=== PATIENT | male | born 1995 | race Caucasian/White ===

== ENCOUNTER 2016-05-27 18:45 | Inpatient (IN) | payer BC ==
--- NOTE | 2016-05-27 18:57 | EDM.PDOC ---
ED HPI GENERAL MEDICAL PROBLEM - General Chief Complaint: Genitourinary Problem Stated Complaint: BLOOD IN URINE Time Seen by Provider: 05/27/16 18:56 Source of Information: Reports: Patient - History of Present Illness INITIAL COMMENTS - FREE TEXT/NARRATIVE: HISTORY AND PHYSICAL: History of present illness: [] Patient presents with a history of muscular dystrophy complains of colored urine and leg cramping no fever nausea vomiting chills sweats As medications or other chronic illness or disease denies herbal supplements Review of systems: As per history of present illness and below otherwise all systems reviewed and negative. Past medical history: As per history of present illness and as reviewed below otherwise noncontributory. Surgical history: As per history of present illness and as reviewed below otherwise noncontributory. Social history: No reported history of drug or alcohol abuse. Family history: As per history of present illness and as reviewed below otherwise noncontributory. Physical exam: HEENT: Atraumatic, normocephalic, pupils reactive, negative for conjunctival pallor or scleral icterus, mucous membranes moist, throat clear, neck supple, nontender, trachea midline. Lungs: Clear to auscultation, breath sounds equal bilaterally, chest nontender. Heart: S1S2, regular, negative for clicks, rubs, or JVD. Abdomen: Soft, nondistended, nontender. Negative for masses or hepatosplenomegaly. Negative for costovertebral tenderness. Pelvis: Stable nontender. Genitourinary: Deferred. Rectal: Deferred. Extremities: Atraumatic, negative for cords or calf pain. Neurovascular unremarkable. Neuro: Awake, alert, oriented. Cranial nerves II through XII unremarkable. Cerebellum unremarkable. Motor and sensory unremarkable throughout. Exam nonfocal. Diagnostics: [] UA with culture Lab as below Therapeutics: [] Liter normal saline bolus Admit for abdominal observation Impression: Rhabdomyolysis Definitive disposition and diagnosis as appropriate pending reevaluation and review of above. - Related Data Allergies Allergy/AdvReac Type Severity Reaction Status Date / Time No Known Allergies Allergy Verified 05/27/16 18:54 Home Meds: Home Meds . [No Known Home Meds] 05/27/16 [History] ED ROS GENERAL - Review of Systems Review Of Systems: ROS reveals no pertinent complaints other than HPI. ED EXAM, GENERAL - Physical Exam Exam: See Below Course - Vital Signs Last Recorded V/S: Last Vital Signs Temp 36.8 C 05/27/16 18:48 Pulse 96 05/27/16 18:48 Resp 18 05/27/16 18:48 BP 115/88 05/27/16 18:48 Pulse Ox 97 05/27/16 18:48 - Orders/Labs/Meds Orders: Active Orders 24 hr Category Date Time Status CULTURE URINE [RM] Stat Lab 05/27/16 19:00 Received Sodium Chloride 0.9% [Normal Saline] 1,000 ml Med 05/27/16 19:52 Ordered IV STAT Medication Orders Sodium Chloride (Normal Saline) 1,000 mls @ 999 mls/hr IV STAT ONE Stop: 05/27/16 20:52 Labs: Laboratory Tests 05/27/16 05/27/16 05/27/16 Range/Units 19:00 19:15 19:16 WBC 9.51 (4.0-11.0) K/uL RBC 5.39 (4.50-5.90) M/uL Hgb 15.6 (13.0-17.0) g/dL Hct 46.5 (38.0-50.0) % MCV 86.3 (80.0-98.0) fL MCH 28.9 (27.0-32.0) pg MCHC 33.5 (31.0-37.0) g/dL RDW Std Deviation 41.6 (28.0-62.0) fl RDW Coeff of Janene 13 (11.0-15.0) % Plt Count 200 (150-400) K/uL MPV 10.60 (7.40-12.00) fL Neut % (Auto) 72.6 (48.0-80.0) % Lymph % (Auto) 19.5 (16.0-40.0) % [place] % (Auto) 6.6 (0.0-15.0) % Eos % (Auto) 1.2 (0.0-7.0) % Baso % (Auto) 0.1 (0.0-1.5) % Neut # 6.9 H (1.4-5.7) K/uL Lymph # 1.9 (0.6-2.4) K/uL [place] # 0.6 (0.0-0.8) K/uL Eos # 0.1 (0.0-0.7) K/uL Baso # 0.0 (0.0-0.1) K/uL Nucleated RBC % 0.0 /100WBC Nucleated RBCs # 0 K/uL Sodium 139 (136-146) mmol/L Potassium 4.4 (3.5-5.1) mmol/L Chloride 106 (98-110) mmol/L Carbon Dioxide 22 (21-31) mmol/L BUN 15 (6.0-23.0) mg/dL Creatinine 0.9 (0.6-1.5) mg/dL Est Cr Clr Drug Dosing 134.06 mL/min Estimated GFR (MDRD) > 60.0 ml/min Glucose 109 (60-110) mg/dL Calcium 9.6 (8.8-10.8) mg/dL Total Bilirubin 0.6 (0.1-1.5) mg/dL AST 39 (5-40) IU/L ALT 46 (8-54) IU/L Alkaline Phosphatase 65 (40-150) Creatine Kinase 1203 H (9-236) IU/L CK-MB (CK-2) 12.5 H (0-6.6) ng/ml Troponin I (0.0-0.29) NG/ML Total Protein 7.7 (6.0-8.0) g/dL Albumin 4.5 (3.5-5.0) g/dL Globulin 3.2 (2.0-3.5) g/dL Albumin/Globulin Ratio 1.4 (1.3-2.8) Urine Color YELLOW Urine Appearance CLEAR Urine pH 6.0 (5.0-8.0) Ur Specific [place] <= 1.005 (1.001-1.035) Urine Protein NEGATIVE (NEGATIVE) mg/dL Urine Glucose (UA) NEGATIVE (NEGATIVE) mg/dL Urine Ketones NEGATIVE (NEGATIVE) mg/dL Urine Occult Blood LARGE H (NEGATIVE) Urine Nitrite NEGATIVE (NEGATIVE) Urine Bilirubin NEGATIVE (NEGATIVE) Urine Urobilinogen 0.2 (<2.0) EU/dL Ur Leukocyte Esterase NEGATIVE (NEGATIVE) Urine RBC 11-22 (0-2/HPF) Urine WBC 0-1 (0-5/HPF) Ur Epithelial Cells RARE (NONE-FEW) Urine Bacteria FEW (NEGATIVE) 05/27/16 Range/Units 19:16 WBC (4.0-11.0) K/uL RBC (4.50-5.90) M/uL Hgb (13.0-17.0) g/dL Hct (38.0-50.0) % MCV (80.0-98.0) fL MCH (27.0-32.0) pg MCHC (31.0-37.0) g/dL RDW Std Deviation (28.0-62.0) fl RDW Coeff of Janene (11.0-15.0) % Plt Count (150-400) K/uL MPV (7.40-12.00) fL Neut % (Auto) (48.0-80.0) % Lymph % (Auto) (16.0-40.0) % [place] % (Auto) (0.0-15.0) % Eos % (Auto) (0.0-7.0) % Baso % (Auto) (0.0-1.5) % Neut # (1.4-5.7) K/uL Lymph # (0.6-2.4) K/uL [place] # (0.0-0.8) K/uL Eos # (0.0-0.7) K/uL Baso # (0.0-0.1) K/uL Nucleated RBC % /100WBC Nucleated RBCs # K/uL Sodium (136-146) mmol/L Potassium (3.5-5.1) mmol/L Chloride (98-110) mmol/L Carbon Dioxide (21-31) mmol/L BUN (6.0-23.0) mg/dL Creatinine (0.6-1.5) mg/dL Est Cr Clr Drug Dosing mL/min Estimated GFR (MDRD) ml/min Glucose (60-110) mg/dL Calcium (8.8-10.8) mg/dL Total Bilirubin (0.1-1.5) mg/dL AST (5-40) IU/L ALT (8-54) IU/L Alkaline Phosphatase (40-150) Creatine Kinase (9-236) IU/L CK-MB (CK-2) (0-6.6) ng/ml Troponin I < 0.10 (0.0-0.29) NG/ML Total Protein (6.0-8.0) g/dL Albumin (3.5-5.0) g/dL Globulin (2.0-3.5) g/dL Albumin/Globulin Ratio (1.3-2.8) Urine Color Urine Appearance Urine pH (5.0-8.0) Ur Specific [place] (1.001-1.035) Urine Protein (NEGATIVE) mg/dL Urine Glucose (UA) (NEGATIVE) mg/dL Urine Ketones (NEGATIVE) mg/dL Urine Occult Blood (NEGATIVE) Urine Nitrite (NEGATIVE) Urine Bilirubin (NEGATIVE) Urine Urobilinogen (<2.0) EU/dL Ur Leukocyte Esterase (NEGATIVE) Urine RBC (0-2/HPF) Urine WBC (0-5/HPF) Ur Epithelial Cells (NONE-FEW) Urine Bacteria (NEGATIVE) Meds: Medications Generic Name Dose Route Start Last Admin Trade Name Freq PRN Reason Stop Dose Admin Sodium Chloride 1,000 mls @ 999 mls/hr 05/27/16 19:52 Normal Saline IV 05/27/16 20:52 STAT ONE Departure - Departure Time of Disposition: 19:56 Disposition: Home, Self-Care 01 Condition: good Clinical Impression: Rhabdomyolysis Forms: ED Department Discharge - My Orders Last 24 Hours: My Active Orders 05/27/16 19:00 CULTURE URINE [RM] Stat 05/27/16 19:52 Sodium Chloride 0.9% [Normal Saline] 1,000 ml IV STAT - Assessment/Plan Last 24 Hours: My Active Orders 05/27/16 19:00 CULTURE URINE [RM] Stat 05/27/16 19:52 Sodium Chloride 0.9% [Normal Saline] 1,000 ml IV STAT
[2016-05-27 19:42] LABS: CHLORIDE,CL 106 mmol/L (98-110); SODIUM,NA 139 mmol/L (136-146)
[2016-05-27] MEDS ORDERED: Sodium Chloride 0.9% 1,000 ML IV ONE (19:52)
[2016-05-27] MEDS ORDERED: Morphine 2 MG/ML Syringe IVPUSH PRN (22:10)
[2016-05-27] MEDS ORDERED: Ondansetron 4 MG/2 ML SDV IVPUSH PRN (22:10)
[2016-05-27] MEDS ORDERED: Sodium Chloride 0.9% 10 ML Syringe FLUSH PRN (22:10)
[2016-05-27] MEDS ORDERED: Sodium Chloride 0.9% 2.5 ML Syringe FLUSH PRN (22:10)
[2016-05-28] MEDS: Sodium Chloride 0.45% 1,000 ML IV SCH ×2 (01:09→07:51)
[2016-05-28 05:33] LABS: CHLORIDE,CL 110 mmol/L (98-110); SODIUM,NA 140 mmol/L (136-146)
--- NOTE | 2016-05-28 08:16 | PCM.HP ---
H&P History of Present Illness - General Date of Service: 05/28/16 Source of Information: Patient, Family - History of Present Illness Initial Comments - Free Text/Narative: 20 yo male with past medical history of muscular dystrophy is admitted for rhabdomyolysis. Yesterday when he went to the bathroom he noticed pink-red urine. He did not do anything strenuous, no fever, chills, no abdominal pain, no swelling or painful muscles. He was diagnosed with muscular dystrophy in 2005. He was seen in [facility] clinic every year since diagnosis and did not have any recommendations or medications. In the ED he received NS bolus. - Related Data Allergies/Adverse Reactions: Allergies Allergy/AdvReac Type Severity Reaction Status Date / Time No Known Allergies Allergy Verified 05/27/16 18:54 Home Medications: Home Meds . [No Known Home Meds] 05/27/16 [History] Past Medical History HEENT History: Reports: Impaired vision Cardiovascular History: Reports: None Respiratory History: Reports: None Gastrointestinal History: Reports: None Genitourinary History: Reports: None Musculoskeletal History: Reports: Muscular Dystrophy Neurological History: Reports: None Psychiatric History: Reports: None Endocrine/Metabolic History: Reports: Obesity/BMI 30+ Hematologic History: Reports: None Immunologic History: Reports: None Oncologic (Cancer) History: Reports: None Dermatologic History: Reports: None - Infectious Disease History Infectious Disease History: Reports: None - Past Surgical History Head Surgeries/Procedures: Reports: None Other Musculoskeletal Surgeries/Procedures:: muscle biopsy Social & Family History - Family History Family Medical History: Noncontributory - Tobacco Use Smoking Status *Q: Never Smoker Second Hand Smoke Exposure: No - Caffeine Use Caffeine Use: Reports: Energy drinks, Soda Caffeine Use Comment: 1-2/day - Recreational Drug Use Recreational Drug Use: No H&P Review of Systems - Review of Systems: Review Of Systems: See Below General: Reports: no symptoms HEENT: Reports: no symptoms Pulmonary: Reports: no symptoms Cardiovascular: Reports: no symptoms Gastrointestinal: Reports: No symptoms Genitourinary: Reports: no symptoms Musculoskeletal: Reports: muscle pain Skin: Reports: no symptoms Psychiatric: Reports: no symptoms Neurological: Reports: no symptoms Hematologic/Lymphatic: Reports: no symptoms Immunologic: Reports: no symptoms Exam - Exam Exam: See Below - Vital Signs Vital Signs: Last Vital Signs Temp 97.8 F 05/28/16 04:00 Pulse 87 05/28/16 04:00 Resp 16 05/28/16 04:00 BP 139/55 L 05/28/16 04:00 Pulse Ox 97 05/28/16 04:00 Weight: 121.8 kg - Exam General: alert, oriented HEENT: Conjunctiva clear, EOMI Neck: supple, trachea midline Lungs: Clear to auscultation, Normal respiratory effort Cardiovascular: regular rate, regular rhythm Abdomen: normal bowel sounds, soft Back Exam: normal inspection, full range of motion Extremities: normal pulses, other (right upper thigh tenderness). No: calf tenderness, edema Peripheral Pulses: 2+: dorsalis pedis (L), dorsalis pedis (R) Skin: warm, dry Neurological: cranial nerves intact Neuro Extensive - Mental Status: alert, oriented x3, normal mood/affect - Patient Data Lab Results last 24 hrs: Laboratory Results - last 24 hr 05/28/16 05/28/16 05/28/16 Range/Units 05:05 05:05 05:05 WBC 9.43 (4.0-11.0) K/uL RBC 5.06 (4.50-5.90) M/uL Hgb 14.5 (13.0-17.0) g/dL Hct 43.7 (38.0-50.0) % MCV 86.4 (80.0-98.0) fL MCH 28.7 (27.0-32.0) pg MCHC 33.2 (31.0-37.0) g/dL RDW Std Deviation 41.2 (28.0-62.0) fl RDW Coeff of Janene 13 (11.0-15.0) % Plt Count 171 (150-400) K/uL MPV 10.40 (7.40-12.00) fL Neut % (Auto) 60.6 (48.0-80.0) % Lymph % (Auto) 29.7 (16.0-40.0) % [place] % (Auto) 8.4 (0.0-15.0) % Eos % (Auto) 1.2 (0.0-7.0) % Baso % (Auto) 0.1 (0.0-1.5) % Neut # 5.7 (1.4-5.7) K/uL Lymph # 2.8 H (0.6-2.4) K/uL [place] # 0.8 (0.0-0.8) K/uL Eos # 0.1 (0.0-0.7) K/uL Baso # 0.0 (0.0-0.1) K/uL Nucleated RBC % 0.0 /100WBC Nucleated RBCs # 0 K/uL Sodium 140 (136-146) mmol/L Potassium 4.1 (3.5-5.1) mmol/L Chloride 110 (98-110) mmol/L Carbon Dioxide 22 (21-31) mmol/L BUN 14 (6.0-23.0) mg/dL Creatinine 0.7 (0.6-1.5) mg/dL Est Cr Clr Drug Dosing 172.36 mL/min Estimated GFR (MDRD) > 60.0 ml/min Glucose 91 (60-110) mg/dL Calcium 9.1 (8.8-10.8) mg/dL Creatine Kinase 1618 H (9-236) IU/L Result Diagrams: 05/28/16 05:05 05/28/16 05:05 *Q Meaningful Use (ADM) - VTE *Q VTE Criteria *Q: - Stroke *Q Stroke Criteria *Q: - AMI *Q AMI Criteria *Q: Problem List Initiated/Reviewed/Updated: Yes Orders Last 24hrs: Active Orders 24 hr Category Date Time Status Patient Status [ADT] Routine ADT 05/27/16 22:10 Active Antiembolic Devices [RC] PER UNIT ROUTINE Care 05/27/16 22:13 Active Oxygen Therapy [RC] PRN Care 05/27/16 22:10 Active Up ad Bertha [RC] ASDIRECTED Care 05/27/16 22:10 Active VTE/DVT Education [RC] PER UNIT ROUTINE Care 05/27/16 22:10 Active Vital Signs [RC] Q4H Care 05/27/16 22:10 Active Morphine Med 05/27/16 22:10 Active 2 mg IVPUSH Q2H PRN Ondansetron [Zofran] Med 05/27/16 22:10 Active 4 mg IVPUSH Q4H PRN Sodium Chloride 0.45% 1,000 ml Med 05/28/16 01:15 Active IV ASDIRECTED Sodium Chloride 0.9% [Saline Flush] Med 05/27/16 22:10 Active 10 ml FLUSH ASDIRECTED PRN Sodium Chloride 0.9% [Saline Flush] Med 05/27/16 22:10 Active 2.5 ml FLUSH ASDIRECTED PRN Peripheral IV Insertion Adult [OM.PC] Routine Oth 05/27/16 22:10 Ordered Sequential Compression Device [OM.PC] Per Unit Routine Oth 05/27/16 22:11 Ordered Resuscitation Status Routine Resus Stat 05/27/16 22:10 Ordered Medication Orders Sodium Chloride (Sodium Chloride 0.45%) 1,000 mls @ 150 mls/hr IV ASDIRECTED LYDIA Last Admin: 05/28/16 07:51 Dose: 150 mls/hr Infusion: 05/28/16 07:50 Dose: 150 mls/hr Admin: 05/28/16 01:09 Dose: 150 mls/hr Morphine Sulfate (Morphine) 2 mg IVPUSH Q2H PRN PRN Reason: Pain (severe 7-10) Stop: 05/28/16 22:12 Ondansetron HCl (Zofran) 4 mg IVPUSH Q4H PRN PRN Reason: n/v Sodium Chloride (Saline Flush) 10 ml FLUSH ASDIRECTED PRN PRN Reason: Keep Vein Open Sodium Chloride (Saline Flush) 2.5 ml FLUSH ASDIRECTED PRN PRN Reason: Keep Vein Open Assessment/Plan Comment:: 20 yo male admitted for Rhabdomyolyiss increase CK from 1203 to 1618 creatinine improved for 0.9 to 0.7 change IVF to isotonic 0.9 NS at 150 ml/hr. monitor I/O
[2016-05-28] MEDS ORDERED: Sodium Chloride 0.9% 1,000 ML IV STA (11:10)
[2016-05-28] MEDS: Sodium Chloride 0.9% 1,000 ML IV SCH (18:11)
[2016-05-29] MEDS: Sodium Chloride 0.9% 1,000 ML IV SCH ×2 (00:22→07:07)
[2016-05-29 05:38] LABS: CHLORIDE,CL 111 mmol/L (98-110); SODIUM,NA 143 mmol/L (136-146)
--- NOTE | 2016-05-29 08:59 | PCM.PN ---
- General Info Date of Service: 05/29/16 Functional Status: Reports: pain controlled - Review of Systems General: Reports: no symptoms HEENT: Reports: no symptoms Pulmonary: Reports: no symptoms Cardiovascular: Reports: no symptoms Gastrointestinal: Reports: No symptoms Genitourinary: Reports: no symptoms Musculoskeletal: Reports: no symptoms Skin: Reports: no symptoms Neurological: Reports: no symptoms Psychiatric: Reports: no symptoms - Patient Data Vitals - most recent: Last Vital Signs Temp 98.1 F 05/29/16 08:00 Pulse 78 05/29/16 08:00 Resp 16 05/29/16 08:00 BP 138/73 05/29/16 08:00 Pulse Ox 98 05/29/16 08:00 Weight - most recent: 121.8 kg I&O - last 24 hours: Intake & Output 05/28/16 05/29/16 05/29/16 22:59 06:59 14:59 Intake Total 4256 2200 1000 Output Total 1300 2730 Balance 2956 -530 1000 Lab Results last 24 hrs: Laboratory Results - last 24 hr 05/28/16 05/29/16 05/29/16 Range/Units 11:09 04:45 04:45 WBC 7.49 (4.0-11.0) K/uL RBC 5.10 (4.50-5.90) M/uL Hgb 14.7 (13.0-17.0) g/dL Hct 44.4 (38.0-50.0) % MCV 87.1 (80.0-98.0) fL MCH 28.8 (27.0-32.0) pg MCHC 33.1 (31.0-37.0) g/dL RDW Std Deviation 41.8 (28.0-62.0) fl RDW Coeff of Janene 13 (11.0-15.0) % Plt Count 169 (150-400) K/uL MPV 11.00 (7.40-12.00) fL Neut % (Auto) 57.7 (48.0-80.0) % Lymph % (Auto) 31.6 (16.0-40.0) % [place] % (Auto) 9.1 (0.0-15.0) % Eos % (Auto) 1.3 (0.0-7.0) % Baso % (Auto) 0.3 (0.0-1.5) % Neut # 4.3 (1.4-5.7) K/uL Lymph # 2.4 (0.6-2.4) K/uL [place] # 0.7 (0.0-0.8) K/uL Eos # 0.1 (0.0-0.7) K/uL Baso # 0.0 (0.0-0.1) K/uL Nucleated RBC % 0.0 /100WBC Nucleated RBCs # 0 K/uL Sodium 143 (136-146) mmol/L Potassium 4.1 (3.5-5.1) mmol/L Chloride 111 H (98-110) mmol/L Carbon Dioxide 23 (21-31) mmol/L BUN 8 (6.0-23.0) mg/dL Creatinine 0.7 (0.6-1.5) mg/dL Est Cr Clr Drug Dosing 172.36 mL/min Estimated GFR (MDRD) > 60.0 ml/min Glucose 83 (60-110) mg/dL Calcium 9.2 (8.8-10.8) mg/dL Creatine Kinase 1681 H 1937 H (9-236) IU/L Med Orders - Current: Current Medications Sodium Chloride (Normal Saline) 1,000 mls @ 150 mls/hr IV ASDIRECTED [facility] Last Admin: 05/29/16 07:07 Dose: 150 mls/hr Ceftriaxone Sodium/Dextrose 1 (gm/ Premix) 50 mls @ 100 mls/hr IV Q24H LYDIA Ondansetron HCl (Zofran) 4 mg IVPUSH Q4H PRN PRN Reason: n/v Sodium Chloride (Saline Flush) 10 ml FLUSH ASDIRECTED PRN PRN Reason: Keep Vein Open Sodium Chloride (Saline Flush) 2.5 ml FLUSH ASDIRECTED PRN PRN Reason: Keep Vein Open Discontinued Medications Sodium Chloride (Normal Saline) 1,000 mls @ 999 mls/hr IV STAT ONE Stop: 05/27/16 20:52 Last Admin: 05/27/16 20:19 Dose: 999 mls/hr Sodium Chloride (Sodium Chloride 0.45%) 1,000 mls @ 150 mls/hr IV ASDIRECTED [facility] Last Admin: 05/28/16 07:51 Dose: 150 mls/hr Sodium Chloride (Normal Saline) 1,000 mls @ 150 mls/hr IV NOW STA Stop: 05/28/16 17:49 Last Admin: 05/28/16 11:48 Dose: 150 mls/hr Morphine Sulfate (Morphine) 2 mg IVPUSH Q2H PRN PRN Reason: Pain (severe 7-10) Stop: 05/28/16 22:12 - Exam General: alert, oriented, cooperative HEENT: Pupils equal, EOMI Lungs: Clear to auscultation, Normal respiratory effort Cardiovascular: regular rate, regular rhythm Abdomen: bowel sounds present, soft Extremities: no edema Skin: warm, dry, intact Neurological: no new focal deficit Psy/Mental Status: alert, normal affect, normal mood - Problem List Review Problem List Initiated/Reviewed/Updated: Yes - My Orders Last 24 Hours: My Active Orders 05/28/16 12:57 Consult to Physician [CONS] Routine 05/28/16 13:00 Notify Provider Consults [RC] ASDIRECTED 05/28/16 16:18 Communication Order [RC] STAT 05/28/16 18:00 Sodium Chloride 0.9% [Normal Saline] 1,000 ml IV ASDIRECTED 05/30/16 05:11 BASIC METABOLIC PANEL,BMP [CHEM] AM CBC WITH AUTO DIFF [HEME] AM CPK [CREATINE KINASE,CK] [CHEM] AM 05/31/16 05:11 BASIC METABOLIC PANEL,BMP [CHEM] AM CBC WITH AUTO DIFF [HEME] AM CPK [CREATINE KINASE,CK] [CHEM] AM - Plan Plan:: Urine culture + E-coli: sensitive to rocephin. increase CK from 1203 to 1618 to 1937 creatinine improved for 0.9 to 0.7 change IVF to isotonic 0.9 NS at 150 ml/hr. monitor I/O
[2016-05-29] MEDS ORDERED: cefTRIAXone 1 GM in Premix Bag 1 BAG IV SCH (09:00)
[2016-05-29] MEDS ORDERED: Sodium Chloride 0.9% 1,000 ML IV SCH (12:45)
[2016-05-29 13:37] VITALS: BP 109/51
--- NOTE | 2016-05-29 16:50 | PCM.DCSUM1 ---
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 He noticed his urine was dark colored with lower extremity muscle aches. His CPK was 1203. He was admitted with hydration with IVF. His CPK remained elevated 1618, 1681,1937. His Urine culture was positive for E-coli. He was treated with rocephin. Neurology was consulted in [place] [facility] They do not have baseline for CPK. The neurologist had stated that his rise in CPK is due to his muscular dystrophy and suggested to check myoglobin which was elevated to 260. He was discharged with keflex and to follow up with Dr. Newell in neurology. - Discharge Data Discharge Date: 05/29/16 Discharge Disposition: Home, Self-Care 01 Condition: Good - Patient Summary/Data Consults: Consultations 05/28/16 12:57 Consult to Physician [CONS] Routine - Patient Instructions Diet: Regular Diet as Tolerated Activity: As Tolerated Driving: May Drive Today Showering/Bathing: May Shower Notify Provider of: Fever, Increased Pain, Swelling and Redness, Drainage, Nausea and/or Vomiting - Discharge Plan Prescriptions/Med Rec: Cephalexin [Keflex] 500 mg PO Q12H #14 capsule Home Medications: Home Meds Cephalexin [Keflex] 500 mg PO Q12H #14 capsule 05/29/16 [Rx] Patient Handouts: Rhabdomyolysis, Muscular Dystrophy, Urinary Tract Infection, Adult, Cephalexin tablets or capsules Referrals: Marisabel Newell MD [Physician] - 08/28/16 1:00 pm - General Info Date of Service: 05/29/16 Functional Status: Reports: pain controlled, tolerating diet - Review of Systems General: Reports: no symptoms HEENT: Reports: no symptoms Pulmonary: Reports: no symptoms Cardiovascular: Reports: no symptoms Gastrointestinal: Reports: No symptoms Genitourinary: Reports: no symptoms Musculoskeletal: Reports: leg pain Skin: Reports: no symptoms Neurological: Reports: no symptoms Psychiatric: Reports: no symptoms - Patient Data Vitals - Most Recent: Last Vital Signs Temp 97.2 F 05/29/16 12:00 Pulse 88 05/29/16 12:00 Resp 16 05/29/16 12:00 BP 109/51 L 05/29/16 12:00 Pulse Ox 96 05/29/16 12:00 Weight - Most Recent: 268 lb 8.368 oz I&O - Last 24 hours: Intake & Output 05/29/16 05/29/16 05/29/16 06:59 14:59 22:59 Intake Total 2200 1050 2849 Output Total 2730 800 Balance -530 1050 2049 Lab Results - Last 24 hrs: Laboratory Results - last 24 hr 05/29/16 05/29/16 Range/Units 04:45 04:45 WBC 7.49 (4.0-11.0) K/uL RBC 5.10 (4.50-5.90) M/uL Hgb 14.7 (13.0-17.0) g/dL Hct 44.4 (38.0-50.0) % MCV 87.1 (80.0-98.0) fL MCH 28.8 (27.0-32.0) pg MCHC 33.1 (31.0-37.0) g/dL RDW Std Deviation 41.8 (28.0-62.0) fl RDW Coeff of Janene 13 (11.0-15.0) % Plt Count 169 (150-400) K/uL MPV 11.00 (7.40-12.00) fL Neut % (Auto) 57.7 (48.0-80.0) % Lymph % (Auto) 31.6 (16.0-40.0) % [place] % (Auto) 9.1 (0.0-15.0) % Eos % (Auto) 1.3 (0.0-7.0) % Baso % (Auto) 0.3 (0.0-1.5) % Neut # 4.3 (1.4-5.7) K/uL Lymph # 2.4 (0.6-2.4) K/uL [place] # 0.7 (0.0-0.8) K/uL Eos # 0.1 (0.0-0.7) K/uL Baso # 0.0 (0.0-0.1) K/uL Nucleated RBC % 0.0 /100WBC Nucleated RBCs # 0 K/uL Sodium 143 (136-146) mmol/L Potassium 4.1 (3.5-5.1) mmol/L Chloride 111 H (98-110) mmol/L Carbon Dioxide 23 (21-31) mmol/L BUN 8 (6.0-23.0) mg/dL Creatinine 0.7 (0.6-1.5) mg/dL Est Cr Clr Drug Dosing 172.36 mL/min Estimated GFR (MDRD) > 60.0 ml/min Glucose 83 (60-110) mg/dL Calcium 9.2 (8.8-10.8) mg/dL Creatine Kinase 1937 H (9-236) IU/L Med Orders - Current: Current Medications Discontinued Medications Sodium Chloride (Normal Saline) 1,000 mls @ 999 mls/hr IV STAT ONE Stop: 05/27/16 20:52 Last Admin: 05/27/16 20:19 Dose: 999 mls/hr Sodium Chloride (Sodium Chloride 0.45%) 1,000 mls @ 150 mls/hr IV ASDIRECTED [facility] Last Admin: 05/28/16 07:51 Dose: 150 mls/hr Sodium Chloride (Normal Saline) 1,000 mls @ 150 mls/hr IV NOW STA Stop: 05/28/16 17:49 Last Admin: 05/28/16 11:48 Dose: 150 mls/hr Sodium Chloride (Normal Saline) 1,000 mls @ 150 mls/hr IV ASDIRECTED [facility] Last Admin: 05/29/16 07:07 Dose: 150 mls/hr Ceftriaxone Sodium/Dextrose 1 (gm/ Premix) 50 mls @ 100 mls/hr IV Q24H [facility] Last Admin: 05/29/16 09:27 Dose: 100 mls/hr Sodium Chloride (Normal Saline) 1,000 mls @ 999 mls/hr IV ASDIRECTED [facility] Last Admin: 05/29/16 13:56 Dose: 999 mls/hr Morphine Sulfate (Morphine) 2 mg IVPUSH Q2H PRN PRN Reason: Pain (severe 7-10) Stop: 05/28/16 22:12 Ondansetron HCl (Zofran) 4 mg IVPUSH Q4H PRN PRN Reason: n/v Sodium Chloride (Saline Flush) 10 ml FLUSH ASDIRECTED PRN PRN Reason: Keep Vein Open Sodium Chloride (Saline Flush) 2.5 ml FLUSH ASDIRECTED PRN PRN Reason: Keep Vein Open - Exam General: Reports: alert, oriented HEENT: Reports: Pupils equal, EOMI Neck: Reports: supple Lungs: Reports: Clear to auscultation, Normal respiratory effort Cardiovascular: Reports: regular rate, regular rhythm Abdomen: Reports: bowel sounds present, soft, no tenderness Back Exam: Reports: normal inspection, full range of motion Extremities: Reports: no edema Skin: Reports: warm, dry, intact *Q Meaningful Use (DIS) - VTE *Q VTE Criteria *Q: - Stroke *Q Stroke Criteria *Q: - AMI *Q AMI Criteria *Q: <Izaiah Pritchett - Last Filed: 05/31/16 20:30> Discharge Summary - Hospital Course Free Text/Narrative:: Patient had coca cola urine , resident contacted the Musular dystrophy clinic and was told that at this time of age patients usually start to have rhabdomyolysis. Patient has intermittent episodes of dark colored urine which cleared up. At discharge his urine was clear . He had myoglobin elevated which confirmed patient had rhabdomyolisis - Discharge Diagnosis/Problem(s) (1) UTI (urinary tract infection) SNOMED Code(s): 85903865 ICD Code: N39.0 - URINARY TRACT INFECTION, SITE NOT SPECIFIED Status: Acute (2) Limb-girdle muscular dystrophy SNOMED Code(s): 54448179 ICD Code: G71.0 - MUSCULAR DYSTROPHY Status: Acute (3) Rhabdomyolysis SNOMED Code(s): 311039735 ICD Code: M62.82 - RHABDOMYOLYSIS Status: Acute - Patient Summary/Data Consults: Consultations 05/28/16 12:57 Consult to Physician [CONS] Routine - Patient Data Vitals - Most Recent: Last Vital Signs Temp 97.2 F 05/29/16 12:00 Pulse 88 05/29/16 12:00 Resp 16 05/29/16 12:00 BP 109/51 L 05/29/16 12:00 Pulse Ox 96 05/29/16 12:00 Lab Results - Last 24 hrs: Laboratory Results - last 24 hr 05/29/16 Range/Units 04:45 Myoglobin 260 H (17-106) ng/mL Med Orders - Current: Current Medications Discontinued Medications Sodium Chloride (Normal Saline) 1,000 mls @ 999 mls/hr IV STAT ONE Stop: 05/27/16 20:52 Last Admin: 05/27/16 20:19 Dose: 999 mls/hr Sodium Chloride (Sodium Chloride 0.45%) 1,000 mls @ 150 mls/hr IV ASDIRECTED [facility] Last Admin: 05/28/16 07:51 Dose: 150 mls/hr Sodium Chloride (Normal Saline) 1,000 mls @ 150 mls/hr IV NOW STA Stop: 05/28/16 17:49 Last Admin: 05/28/16 11:48 Dose: 150 mls/hr Sodium Chloride (Normal Saline) 1,000 mls @ 150 mls/hr IV ASDIRECTED [facility] Last Admin: 05/29/16 07:07 Dose: 150 mls/hr Ceftriaxone Sodium/Dextrose 1 (gm/ Premix) 50 mls @ 100 mls/hr IV Q24H [facility] Last Admin: 05/29/16 09:27 Dose: 100 mls/hr Sodium Chloride (Normal Saline) 1,000 mls @ 999 mls/hr IV ASDIRECTED [facility] Last Admin: 05/29/16 13:56 Dose: 999 mls/hr Morphine Sulfate (Morphine) 2 mg IVPUSH Q2H PRN PRN Reason: Pain (severe 7-10) Stop: 05/28/16 22:12 Ondansetron HCl (Zofran) 4 mg IVPUSH Q4H PRN PRN Reason: n/v Sodium Chloride (Saline Flush) 10 ml FLUSH ASDIRECTED PRN PRN Reason: Keep Vein Open Sodium Chloride (Saline Flush) 2.5 ml FLUSH ASDIRECTED PRN PRN Reason: Keep Vein Open *Q Meaningful Use (DIS) - VTE *Q VTE Criteria *Q: - Stroke *Q Stroke Criteria *Q: - AMI *Q AMI Criteria *Q:
== END 2016-05-29 16:26 | disposition home or self-care (01) | DRG 463 ==
LOC: MW.ED 18:45 → MW.MS 20:11 → MERGE 20:11 → MW.MS 05-28 10:42 → OBSVTOIN 05-28 10:42
PROVIDERS: ADMIT Internal Medicine; ATTEND Internal Medicine
DX: N39.0 Urinary tract infection, site not specified (principal); B96.20 Unspecified Escherichia coli [E. coli] as the cause of diseases classified elsewhere; G71.0 Muscular dystrophy; M62.82 Rhabdomyolysis
CPT/HCPCS: 36415; 80048; 80053; 81001; 82550; 82553; 83874; 84100; 84484; 85025; 87086; 87088; 87186; 96360; 96361; 99283; 99284; G0378; J0696; J7030; J7040

== ENCOUNTER → 2016-06-07 | Outpatient (CLI) | payer BC ==
[2016-06-07 11:34] LABS: CHLORIDE,CL 108 mmol/L (98-110); SODIUM,NA 142 mmol/L (136-146)
== END ==
LOC: MW.CHNEURO 10:43
PROVIDERS: ATTEND Psychiatry & Neurology Neuromuscular Medicine
DX: R31.9 Hematuria, unspecified (principal); G71.0 Muscular dystrophy
CPT/HCPCS: 36415; 80048; 81001; 82550

== ENCOUNTER 2019-03-30 10:00 | Emergency (ER) | payer BC ==
[2019-03-30] MEDS ORDERED: Ondansetron 4 MG/2 ML SDV IVPUSH ONE (11:00)
[2019-03-30] MEDS ORDERED: Acetaminophen 325 MG Tab PO ONE (11:00)
[2019-03-30] MEDS ORDERED: Sodium Chloride 0.9% 1,000 ML IV ONE (11:00)
[2019-03-30 11:44] LABS: BLOOD UREA NITROGEN,BUN 9 mg/dL (7.0-18.0); CARBON DIOXIDE,CO2 28.7 mmol/L (21.0-32.0); CHLORIDE,CL 106 mmol/L (98-107); GLUCOSE RANDOM 106 mg/dL (74-106); POTASSIUM,K 3.2 mmol/L (3.5-5.1); SODIUM,NA 143 mmol/L (136-148)
--- NOTE | 2019-03-30 12:17 | EDM.PDOC ---
ED [facility] GENERAL MEDICAL PROBLEM - General Chief Complaint: Gastrointestinal Problem Stated Complaint: BLEEDING Time Seen by Provider: 03/30/19 10:00 Source of Information: Reports: Patient, Family History Limitations: Reports: No Limitations - History of Present Illness INITIAL COMMENTS - FREE TEXT/NARRATIVE: Patient is 23-year-old male with a history of muscular muscular dystrophy presenting with a chief complaint of abdominal pain and diarrhea. Started this morning. Patient states he had several episodes of diarrhea that had small specks of blood in. Had some pain in the lower part of his abdomen. The pain states it feels like a crampy sensation and after he had diarrhea is pain resolved. Patient has not had any fevers, chills, recent illnesses. Patient does report a 70 pound weight loss over the period of 1 year. Patient has not been eating more than 1 meal per day as he is concerned about his diagnosis of muscular dystrophy. In addition to that documented in the HPI above, the additional ROS was obtained : Constitutional: Denies fevers or chills Eyes: Denies vision changes ENMT: Denies sore throat CV: Denies chest pain Resp: Denies SOB GI: Denies vomiting or diarrhea : Denies painful urination MSK: Denies recent trauma Skin: Denies new rashes Neuro: Denies new numbness or tingling or weakness Endocrine: Per HPI Heme: Denies bleeding disorders I have reviewed the triage vital signs Const: Well nourished, well developed, appears stated age Eyes: PERRL, no conjunctival injection HENT: NCAT, Neck supple without meningismus CV: RRR, Warm, well-perfused extremities RESP: CTAB, Unlabored respiratory effort GI: soft, non-tender, non-distended, no masses MSK: No gross deformities appreciated Skin: Warm, dry. No rashes Neuro: Alert, event services manager II-XII grossly intact. Sensation and motor function of extremities grossly intact. Psych: Appropriate mood and affect Assesment and plan Patient is a 23-year-old male with a presentation of lower abdominal pain. Patient's labs are within normal limits. broad differential diagnosis was considered appendicitis, colitis, dehydration, influenza. However, given the benign abdominal exam appendicitis and colitis are unlikely. Patient symptoms improved greatly after administration of medications and IV fluids. Patient's blood pressure has improved. Patient will be given care and return precautions. Patient urged to follow-up as a outpatient with family medicine clinic as he does not have any family medicine provider. All questions were asked and answered. Patient agrees with plan - Related Data Allergies Allergy/AdvReac Type Severity Reaction Status Date / Time No Known Allergies Allergy Verified 03/30/19 10:42 Home Meds: Home Meds . [No Known Home Meds] 03/30/19 [History] Past Medical History HEENT History: Reports: Impaired Vision Cardiovascular History: Reports: None Respiratory History: Reports: None Gastrointestinal History: Reports: None Genitourinary History: Reports: None Musculoskeletal History: Reports: Muscular Dystrophy Neurological History: Reports: None Psychiatric History: Reports: None Endocrine/Metabolic History: Reports: Obesity/BMI 30+ Hematologic History: Reports: None Immunologic History: Reports: None Oncologic (Cancer) History: Reports: None Dermatologic History: Reports: None - Infectious Disease History Infectious Disease History: Reports: None - Past Surgical History Head Surgeries/Procedures: Reports: None Other Musculoskeletal Surgeries/Procedures:: muscle biopsy Social & Family History - Family History Family Medical History: Noncontributory - Tobacco Use Smoking Status *Q: Never Smoker Second Hand Smoke Exposure: No - Caffeine Use Caffeine Use: Reports: None Caffeine Use Comment: 1-2/day - Recreational Drug Use Recreational Drug Use: No ED ROS GENERAL - Review of Systems Review Of Systems: See Below ED EXAM, GI/ABD - Physical Exam Exam: See Below Course - Vital Signs Last Recorded V/S: Last Vital Signs Temp 36.6 C 03/30/19 10:42 Pulse 61 03/30/19 11:22 Resp 20 03/30/19 11:22 BP 109/41 L 03/30/19 11:22 Pulse Ox 100 03/30/19 11:22 - Orders/Labs/Meds Labs: Laboratory Tests 03/30/19 03/30/19 Range/Units 10:55 10:55 WBC 5.19 (4.0-11.0) K/uL RBC 4.61 (4.50-5.90) M/uL Hgb 14.0 (13.0-17.0) g/dL Hct 40.1 (38.0-50.0) % MCV 87.0 (80.0-98.0) fL MCH 30.4 (27.0-32.0) pg MCHC 34.9 (31.0-37.0) g/dL RDW Std Deviation 42.4 (28.0-62.0) fl RDW Coeff of Janene 14 (11.0-15.0) % Plt Count 142 L (150-400) K/uL MPV 11.30 (7.40-12.00) fL Neutrophils % (Manual) 53 (48.0-80.0) % Lymphocytes % (Manual) 41 H (16.0-40.0) % Monocytes % (Manual) 6 (0.0-15.0) % Nucleated RBC % 0.0 /100WBC Absolute Seg Neuts 2.8 (1.4-5.7) Lymphocytes # (Manual) 2.1 (0.6-2.4) Monocytes # (Manual) 0.3 (0.0-0.8) Sodium 143 (136-148) mmol/L Potassium 3.2 L (3.5-5.1) mmol/L Chloride 106 (98-107) mmol/L Carbon Dioxide 28.7 (21.0-32.0) mmol/L BUN 9 (7.0-18.0) mg/dL Creatinine 0.7 L (0.8-1.3) mg/dL Est Cr Clr Drug Dosing 162.72 mL/min Estimated GFR (MDRD) > 60.0 ml/min Glucose 106 (74-106) mg/dL Calcium 9.2 (8.5-10.1) mg/dL Total Bilirubin 0.8 (0.2-1.0) mg/dL AST 39 H (15-37) IU/L ALT 43 (14-63) IU/L Alkaline Phosphatase 38 L (46-116) U/L Total Protein 6.8 (6.4-8.2) g/dL Albumin 4.2 (3.4-5.0) g/dL Globulin 2.6 (2.6-4.0) g/dL Albumin/Globulin Ratio 1.6 (0.9-1.6) Meds: Medications Discontinued Medications Generic Name Dose Route Start Last Admin Trade Name Freq PRN Reason Stop Dose Admin Acetaminophen 650 mg 03/30/19 11:00 03/30/19 11:11 Tylenol PO 03/30/19 11:01 650 mg NOW ONE Administration Sodium Chloride 1,000 mls @ 999 mls/hr 03/30/19 11:00 03/30/19 11:11 Normal Saline IV 03/30/19 12:00 999 mls/hr .BOLUS ONE Administration Ondansetron HCl 4 mg 03/30/19 11:00 03/30/19 11:11 Zofran IVPUSH 03/30/19 11:01 4 mg ONETIME ONE Administration Departure - Departure Time of Disposition: 12:17 Disposition: Home, Self-Care 01 Clinical Impression: Diarrhea - Discharge Information Instructions: Diarrhea, Adult Referrals: Marisabel Newell MD [Primary Care Provider] - Sepsis Event Note - Evaluation Sepsis Screening Result: No Definite Risk - Focused Exam Vital Signs: Vital Signs Temp Pulse Resp BP Pulse Ox 03/30/19 11:22 61 20 109/41 L 100 03/30/19 10:42 36.6 C 60 16 93/40 L 100 Date Exam was Performed: 03/30/19 Time Exam was Performed: 12:11
[2019-03-30 12:25] VITALS: BP 103/45; PULSE 72
== END 2019-03-30 12:26 | disposition home or self-care (01) ==
LOC: MW.ED 10:00
DX: R19.7 Diarrhea, unspecified (principal); R10.30 Lower abdominal pain, unspecified
CPT/HCPCS: 36415; 80053; 85007; 85027; 96361; 96374; 99284; A9270; J2405; J7030